=== PATIENT | female | born 1975 | race American Indian/Alaskan Native ===

== ENCOUNTER → 2018-01-15 14:37 | Outpatient (CLI) | payer OTHER, SELFPAY ==
[2018-01-15 14:55] LABS: Add Manual Diff / Slide Review NO; Basophils Percent Auto 0.8 % (0-2); Eosinophils Percent Auto 3.5 % (2-4); Hemoglobin 13.9 g/dL (12.0-16.0); Lymphocytes Percent Auto 43.4 % (25-40); Mean Corpuscular Hemoglobin 28.4 PG (26-34); Mean Corpuscular Volume 83.4 fL (80-100); Monocytes Percent Auto 6.4 % (3-14); Neutrophils Absolute Auto 2000 /uL (3000-5900); Neutrophils Percent Auto 45.9 % (50-75); Platelet Count 196 X10^3/uL (150-400); Red Blood Cell Count 4.91 X10^6/uL (4.0-5.2); Red Cell Distribution Width 13.7 % (11.6-14.8); White Blood Cell Count 4.4 X10^3/uL (4.5-11.0)
[2018-01-15 15:44] LABS: Alanine Aminotransferase 94 IU/L (9-52); Albumin 3.9 g/dL (3.5-5.0); Albumin Globulin Ratio 1.1 (1.0-2.8); Alkaline Phosphatase 123 U/L (38-126); Aspartate Aminotransferase 87 IU/L (14-36); BUN Creatinine Ratio 11.7 (6-22); Bilirubin Total 0.5 mg/dL (0.2-1.3); Blood Urea Nitrogen 7 mg/dL (7-17); Calcium 8.8 mg/dL (8.4-10.2); Carbon Dioxide 28 mmol/L (22-32); Chloride 106 mmol/L (98-107); Estimated Glomerular Filt Rate > 60.0 mL/min (>60); Globulin 3.4 g/dL (1.7-4.1); Glucose 114 mg/dL (70-100); HEMOLYSIS < 15 (0-50); Potassium 3.4 mmol/L (3.4-5.1); Sodium 143 mmol/L (137-145); Total Protein 7.3 g/dL (6.3-8.2)
== END ==
PROVIDERS: Nurse Practitioner Gerontology; Family Provider Family Medicine; PCP Family Medicine; Visit Provider Internal Medicine Hematology & Oncology
DX: C50.912 Malignant neoplasm of unspecified site of left female breast (principal)
CPT/HCPCS: 36415; 80053; 85025

== ENCOUNTER → 2018-07-10 08:35 | Outpatient (CLI) | payer OTHER, SELFPAY ==
--- NOTE | 2018-07-10 08:37 | DI.US.S_ITS ---
LIMITED ULTRASOUND OF RIGHT BREAST AND AXILLA: 07/10/2018 CLINICAL: PALPABLE MASS/LUMP OF RIGHT AXILLA, RIGHT RECONSTRUCTED BREAST TENDERNESS. Comparison is made to exams dated: 10/08/2014 ultrasound, 03/24/2014, and 03/24/2014 mammogram [facility]. Color flow and real-time ultrasound of the right breast lower outer quadrant and axilla regions were performed on the areas of interest. There is an 0.9 cm x 0.6 cm x 0.3 cm oval hypoechoic structure likely representing a cyst within the skin of the right axilla. There are internal echoes. A small linear tract is noted extending to the skin. This correlates with the palpated abnormality. Color flow imaging demonstrates that there is adjacent vascularity. IMPRESSION: BENIGN There is no sonographic evidence of malignancy. The 0.9 cm x 0.6 cm x 0.3 cm oval complicated cyst within the skin is consistent with a sebaceous cyst and is benign. Adjacenet vascularity suggests inflammatory change. Recommend clinical followup to demonstrate resolution. There is no abnormality seen in the right breast to correspond with the palpable abnormality in the lower outer quadrant, however, clinical followup is recommended. This exam was interpreted at Station ID: [id number]. Electronically Signed By: Irineo Bradley M.D. ddclovis/:07/11/2018 08:33:40 letter sent: Clinical Evaluation Ultrasound BI-RADS: 2 Benign
--- NOTE | 2018-07-10 08:37 | DI.US.S_ITS ---
LIMITED ULTRASOUND OF LEFT BREAST AND AXILLA: 07/10/2018 CLINICAL: LEFT AXILLARY PALPABLE MASS, RECONSTRUCTED BREAST TENDERNESS. Comparison is made to exams dated: 08/07/2017 ultrasound, 10/08/2014 [facility] and real-time ultrasound of the left breast lower inner quadrant and axilla regions were performed on the areas of interest. There is a hypoechoic structure measuring 1.6 cm x 0.3 cm x 1 cm likely representing a cyst with debris within the skin of the left axilla. There is a small tract to the skin noted. This correlates with palpated. Color flow imaging demonstrates that there is vascularity present. There also is a similar 1.4 cm x 0.3 cm x 0.8 cm oval complicated cyst within the skin of the left axilla. This oval complicated cyst is hypoechoic with internal echoes. There is also a small tract to the skin noted. This correlates with palpated. Color flow imaging demonstrates that there is vascularity present. No discrete cystic or solid mass identified in the lower inner quadrant. IMPRESSION: BENIGN There is no sonographic evidence of malignancy. The 1.6 cm x 0.3 cm x 1 cm oval cyst with debris within the skin of the left axilla is consistent with a sebaceous cyst and is benign. Recommend followup clinically to demonstrate resolution. The 1.4 cm x 0.3 cm x 0.8 cm oval complicated cyst within the skin of the left axilla is consistent with a sebaceous cyst and is benign. Recommend clinical followup to demonstrate resolution. There is no abnormality seen in the left breast to correspond with the palpable abnormality in the lower inner quadrant, however, clinical followup is recommended. This exam was interpreted at Station ID: [id number]. Electronically Signed By: Irineo Bradley M.D. ddp/:07/11/2018 08:41:13 letter sent: Clinical Evaluation Ultrasound BI-RADS: 2 Benign
== END ==
PROVIDERS: Family Provider Family Medicine; PCP Family Medicine; Visit Provider Family Medicine
DX: C50.919 Malignant neoplasm of unspecified site of unspecified female breast (principal); N60.81 Other benign mammary dysplasias of right breast; N60.82 Other benign mammary dysplasias of left breast
CPT/HCPCS: 76642

== ENCOUNTER → 2018-10-23 09:35 | Outpatient (CLI) | payer OTHER, SELFPAY ==
[2018-10-23 11:56] LABS: Add Manual Diff / Slide Review NO; Basophils Absolute Auto 0 /uL (0-100); Basophils Percent Auto 0.3 % (0-2); Eosinophils Absolute Auto 100 /uL (0-450); Eosinophils Percent Auto 3.1 % (2-4); Hematocrit 42.7 % (36-46); Hemoglobin 14.2 g/dL (12.0-16.0); Lymphocytes Absolute Auto 1900 /uL (1100-4500); Lymphocytes Percent Auto 40.4 % (25-40); Mean Corpuscular HGB Conc 33.3 % (30-36); Mean Corpuscular Hemoglobin 28.4 PG (26-34); Mean Corpuscular Volume 85.2 fL (80-100); Monocytes Absolute Auto 300 /uL (0-900); Monocytes Percent Auto 6.9 % (3-14); Neutrophils Absolute Auto 2300 /uL (1500-7000); Neutrophils Percent Auto 49.3 % (50-75); Platelet Count 219 X10^3/uL (150-400); Red Cell Distribution Width 14.1 % (11.6-14.8); White Blood Cell Count 4.7 X10^3/uL (4.5-11.0)
[2018-10-23 12:00] LABS: Hemoglobin A1C% w Est Avg Glu 5.7 % (4.0-6.0)
[2018-10-23 12:06] LABS: Alanine Aminotransferase 93 IU/L (9-52); Albumin 4.1 g/dL (3.5-5.0); Albumin Globulin Ratio 1.2 (1.0-2.8); Alkaline Phosphatase 136 U/L (38-126); Aspartate Aminotransferase 85 IU/L (14-36); BUN Creatinine Ratio 12.9 (6-22); Bilirubin Total 0.6 mg/dL (0.2-1.3); Blood Urea Nitrogen 9 mg/dL (7-17); Calcium 8.7 mg/dL (8.4-10.2); Carbon Dioxide 31 mmol/L (22-32); Chloride 105 mmol/L (98-107); Estimated Glomerular Filt Rate > 60.0 mL/min (>60); Globulin 3.4 g/dL (1.7-4.1); Glucose 106 mg/dL (70-100); HEMOLYSIS < 15 (0-50); Potassium 3.9 mmol/L (3.4-5.1); Sodium 143 mmol/L (137-145); Total Protein 7.5 g/dL (6.3-8.2)
[2018-10-23 12:27] LABS: Creatinine Urine Random 266.1 mg/dL
[2018-10-23 12:31] LABS: Microalbumi Creatinin Ratio Ur 6.3 ug/mg CR (<30); Microalbumin Urine Random 1.7 mg/dL (0-1.6)
[2018-10-23 12:34] LABS: Cholesterol 234 mg/dL (140-199); HDL Cholesterol 45 mg/dL (40-60); LDL Cholesterol Calculated 134 mg/dL (<100); Triglycerides 274 mg/dL (35-150)
== END ==
PROVIDERS: Nurse Practitioner Gerontology; PCP Family Medicine; Visit Provider Family Medicine
DX: C50.919 Malignant neoplasm of unspecified site of unspecified female breast (principal); I10 Essential (primary) hypertension; R73.03 Prediabetes
CPT/HCPCS: 36415; 80053; 80061; 82043; 82570; 83036; 85025

== ENCOUNTER → 2018-11-01 12:54 | Outpatient (CLI) | payer OTHER, SELFPAY | PROVIDERS: PCP Family Medicine; Visit Provider Family Medicine | DX: R20.8 Other disturbances of skin sensation (principal) | CPT/HCPCS: 95885; 95886; 95911 ==

== ENCOUNTER → 2019-02-27 15:19 | Outpatient (CLI) | payer OTHER, SELFPAY ==
--- NOTE | 2019-02-27 15:23 | DI.RAD.S_ITS ---
PROCEDURE: XR CHEST 2V INDICATIONS: cough x 2 months, hx breast CA TECHNIQUE: 2 views of the chest were acquired. COMPARISON: [facility], , CHEST 1 VIEW, 04/26/2013, 10:15. FINDINGS: Surgical changes and devices: Previously seen right tunneled port device has been removed. Surgical close project over the right chest. Surgical clips in right upper abdomen likely from prior cholecystectomy. Lungs and pleura: Lungs are clear. No pleural effusions or pneumothorax. Mediastinum: Mediastinal contours are normal. Heart size is normal. Bones and chest wall: No suspicious bony abnormalities. Soft tissues appear unremarkable. IMPRESSION: Chest without acute cardiopulmonary abnormalities. No focal consolidation. If there is persistent clinical concern for disease recurrence or metastatic involvement of the lungs, consider CT evaluation as it is more sensitive for detecting smaller lesions that may not be readily visible on radiographs. Dictated by: Ricardo Fernandes M.D. on 02/27/2019 at 16:24 Approved by: Ricardo Fernandes M.D. on 02/27/2019 at 16:27
== END ==
PROVIDERS: PCP Family Medicine; Visit Provider Family Medicine
DX: R05 Cough (principal); Z85.3 Personal history of malignant neoplasm of breast
CPT/HCPCS: 71046

== ENCOUNTER → 2020-03-31 09:25 | Outpatient (CLI) | payer OTHER, SELFPAY ==
[2020-03-31 10:24] LABS: Hemoglobin A1C% w Est Avg Glu 5.7 % (4.0-6.0)
== END ==
PROVIDERS: PCP Family Medicine; Referring Provider Family Medicine; Visit Provider Family Medicine
DX: R73.03 Prediabetes (principal)
CPT/HCPCS: 36415; 83036

== ENCOUNTER → 2020-06-30 12:43 | Outpatient (CLI) | payer OTHER, SELFPAY ==
--- NOTE | 2020-06-30 | DI.US.S_ITS ---
ULTRASOUND OF RIGHT AXILLA: 06/30/2020 CLINICAL: Right axilla areas f/u - prior done 07/2018. Comparison is made to exams dated: 07/10/2018 ultrasound, 10[facility]08[facility]2014 [facility] of the right axilla was performed. The benign 0.9 cm x 0.6 cm x 0.3 cm cyst within the skin of the right axilla is no longer seen. IMPRESSION: BENIGN There is no sonographic evidence of malignancy. The benign 0.9 cm x 0.6 cm x 0.3 cm cyst within the skin of the right axilla is no longer seen. This exam was interpreted at Station ID: [id number]. Electronically Signed By: Cesar Rajan acr/:06/30/2020 16:04:50 letter sent: Clinical Evaluation Ultrasound BI-RADS: 2 Benign
== END ==
PROVIDERS: PCP Family Medicine; Referring Provider Family Medicine; Visit Provider Family Medicine
DX: N63.31 Unspecified lump in axillary tail of the right breast (principal)
CPT/HCPCS: 76882

== ENCOUNTER → 2020-07-07 08:09 | Outpatient (CLI) | payer OTHER, SELFPAY ==
--- NOTE | 2020-07-07 | DI.US.S_ITS ---
LIMITED ULTRASOUND OF RIGHT BREAST- WITH AUGMENTATION: 07/07/2020 CLINICAL: Palpable right breast lump at lateral end of mastectomy scar. Comparison is made to exams dated: 06/30/2020 ultrasound and 07/10/2018 [facility]. Real-time ultrasound of the right reconstructed breast 9 o'clock region was performed on the area of interest. No discrete cystic or solid mass lesion identified in the area of palpable abnormality. IMPRESSION: NEGATIVE There is no sonographic evidence of malignancy. There is no abnormality seen in the right reconstructed breast to correspond with the palpable abnormality at 9 o'clock, however, clinical followup is recommended. This exam was interpreted at Station ID: [id number]. Electronically Signed By: Irineo Bradley M.D. ddclovis/:07/07/2020 11:43:28 letter sent: Clinical Evaluation Ultrasound BI-RADS: 1 Negative
== END ==
PROVIDERS: PCP Family Medicine; Referring Provider Family Medicine; Visit Provider Family Medicine
DX: N63.10 Unspecified lump in the right breast, unspecified quadrant
CPT/HCPCS: 76642

== ENCOUNTER → 2021-04-07 12:35 | Outpatient (CLI) | payer OTHER, SELFPAY ==
--- NOTE | 2021-04-07 12:37 | DI.US.S_ITS ---
LIMITED ULTRASOUND OF RIGHT BREAST: 04/07/2021 CLINICAL: Right breast pain. Comparison is made to exams dated: 07/07/2020 ultrasound, 06/30/2020 ultrasound, 07/10/2018 ultrasound, 10/08/2014 ultrasound, 03/24/2014 mammogram, and 03/24/2014 [facility]. Real-time ultrasound of the right chest wall was performed in the areas of interest. No discrete cystic or solid mass lesion identified in the area of focal pain in the inferior right chest wall. No discrete cystic or solid mass lesion identified in the area of focal pain in the mid right chest wall. However, evaluation is limited by the presence of the breast implant. . IMPRESSION: NEGATIVE There is no sonographic evidence of malignancy in the areas of pain in the right chest wall. Evaluation of the area of pain posterior to the right implant is limited sonographically. Clinical followup is recommended. If clinical concern persists, further evaluation may be obtained with a breast MRI. This exam was interpreted at Station ID: [id number]. Electronically Signed By: Irineo pope/:04/07/2021 15:12:20 letter sent: Clinical Evaluation Ultrasound BI-RADS: 1 Negative
== END ==
PROVIDERS: PCP Family Medicine; Referring Provider Internal Medicine Hematology & Oncology; Visit Provider Internal Medicine Hematology & Oncology
DX: N64.4 Mastodynia (principal); Z98.82 Breast implant status; Z85.3 Personal history of malignant neoplasm of breast
CPT/HCPCS: 76642

== ENCOUNTER → 2021-04-28 09:52 | Outpatient (CLI) | payer OTHER, SELFPAY ==
--- NOTE | 2021-04-28 09:54 | DI.RAD.S_ITS ---
PROCEDURE: XR FOOT LT MIN 3V INDICATIONS: screen TECHNIQUE: 3 views of the foot were acquired. COMPARISON: None. FINDINGS: Bones: No fractures or dislocations. No suspicious bony lesions. Soft tissues: No tibiotalar joint effusion. Achilles tendon appears normal. IMPRESSION: No evidence acute bony abnormality of the left foot. If clinical suspicion and/or symptoms persist, further assessment with repeat plain films, or advanced imaging (e.g., CT, MRI, or bone scan) may be helpful for further assessment. Dictated by: Santiago Cano M.D. on 04/28/2021 at 10:16 Approved by: Santiago Cano M.D. on 04/28/2021 at 10:17
--- NOTE | 2021-04-28 09:54 | DI.RAD.S_ITS ---
PROCEDURE: XR KNEE LT 3V INDICATIONS: screen TECHNIQUE: 3 views of the knee were acquired. COMPARISON: None. FINDINGS: Bones: No fractures or dislocations. No suspicious bony lesions. Scattered degenerative subchondral sclerosis and spurring. Mild patellofemoral joint space narrowing. Soft tissues: No joint effusion. No suspicious soft tissue calcifications. IMPRESSION: Mild degenerative changes. If the patient's pain or other symptoms persist, consider further evaluation with MRI Dictated by: Faustino Castro M.D. on 04/28/2021 at 10:56 Approved by: Faustino Castro M.D. on 04/28/2021 at 10:57
== END ==
PROVIDERS: PCP Family Medicine; Referring Provider Family Medicine; Visit Provider Family Medicine
DX: M79.605 Pain in left leg (principal); M79.675 Pain in left toe(s)
CPT/HCPCS: 73562; 73630

== ENCOUNTER → 2021-05-14 10:15 | Outpatient (CLI) | payer OTHER, SELFPAY ==
[2021-05-14 12:04] LABS: COVID19 -Nasal RAPID Negative (Negative)
== END ==
PROVIDERS: PCP Family Medicine; Visit Provider Surgery
DX: Z01.812 Encounter for preprocedural laboratory examination (principal); Z20.822 Contact with and (suspected) exposure to COVID-19
CPT/HCPCS: 87635; C9803

== ENCOUNTER 2021-05-17 12:33 | Day surgery (SDC) | payer OTHER, SELFPAY ==
[2021-05-17 13:03] VITALS: BP 161/98; PULSE 89; RESP 16; TEMP 36.6; O2SAT 96; BMI 41.0
[2021-05-17] MEDS: LACTATED RINGERS 1,000 ML 42 ML IV (13:33)
--- NOTE | 2021-05-17 13:42 | P.HP_ITS ---
History of Present Illness History of Present Illness Date Patient Seen: 05/17/21 Time Patient Seen: 13:42 Chief complaint: SCREENING COLONOSCOPY Narrative: Rosa Maria is a 46-year-old woman who has never had a colonoscopy before. She has had breast cancer and she is BRCA positive. She denies a any known family history of colon cancer specifically. She denies any melena or bright red blood per rectum. No recent changes in bowel function. Patient History Medical History Breast cancer (2012) CTS (carpal tunnel syndrome) HPV (human papilloma virus) infection Pulmonary embolism (2006) Surgical History Anesthesia History of bilateral salpingo-oophorectomy (BSO) (01/05/15) History of carpal tunnel repair (09/19/14) History of removal of Port-a-Cath (2013) History of tonsillectomy (1990) Port-A-Cath in place (2012) Status post appendectomy (1991) Status post delivery (1998) Status post delivery (1999) Status post delivery (2001) Status post delivery (2006) Status post cholecystectomy (1998) Status post laparoscopy (01/05/15) Status post partial mastectomy (02/27/13) Family & Social History Family History Brother Age: 36 Hypertension Sister Age: 46 Rheumatoid arthritis Brother No problems noted. Father MVA (motor vehicle accident) Mother No problems noted. Sister No problems noted. Social History: household members spouse other gardening, travel, [employer] Tobacco & Substance use: Smoking Status Never smoker alcohol intake current alcohol intake frequency holiday/special occasion Substance Use Type does not use Meds Home Medications and Allergies Home Medications Medication Instructions Recorded Confirmed Type fluticasone propionate 44 2 inhalation INHALATION BID #10.6 12/17/19 05/17/21 Rx mcg/actuation HFA aerosol inhaler gram omeprazole 20 mg capsule,delayed See Rx Instructions .ROUTE 11/23/20 05/17/21 Rx release .COMPLEX #90 cap amitriptyline 10 mg tablet See Rx Instructions .ROUTE 02/15/21 05/17/21 Rx .COMPLEX #90 tab gabapentin 100 mg capsule See Rx Instructions .ROUTE 03/01/21 05/17/21 Rx .COMPLEX #120 cap etodolac 400 mg tablet See Rx Instructions .ROUTE 03/15/21 05/17/21 Rx .COMPLEX #180 tab meclizine 12.5 mg tablet 12.5 mg PO TID PRN #30 tab 04/19/21 05/17/21 Rx lisinopril 20 mg tablet See Rx Instructions .ROUTE 05/10/21 05/17/21 Rx .COMPLEX #90 tab Allergies Allergy/AdvReac Type Severity Reaction Status Date / Time cefotetan [CEFOTETAN] Allergy Mild Hives Verified 05/17/21 13:31 cefuroxime [CEFUROXIME] Allergy Mild Rash Verified 05/17/21 13:31 clindamycin [CLINDAMYCIN] Allergy Mild Hives Verified 05/17/21 13:31 Gadolinium-Containing Allergy Mild Hives Verified 05/17/21 13:31 Contrast Medi [GADOLINIUM-CONTAINING CONTRAST MEDI] ketorolac [KETOROLAC] Allergy Mild Hives Verified 05/17/21 13:31 lidocaine [LIDOCAINE] Allergy Mild Hives Verified 05/17/21 13:31 vancomycin [VANCOMYCIN] Allergy Unknown Itching Verified 05/17/21 13:31 Exam Vital Signs (past 8 hours): - 05/17/21 13:03 Temperature 97.9 F Pulse Rate 89 Respiratory Rate 16 Blood Pressure 161/98 H Pulse Oximetry 96 Oxygen Delivery Method Room Air Const Nutritional Appearance: obese Orientation: alert and awake Eyes General: appearance normal, both eyes and all related structures Resp Effort & Inspection: normal respiratory effort Assessment & Plan Assessment and plan (1) BRCA2 positive: Status: Acute Plan 46-year-old woman with BRCA positive. She is here for colonoscopy. We reviewed the risks and benefits. She would like to proceed. Time Spent With Patient Critical Care time: I spent a total of [] minutes of critical care time on this patient's care today; this time is exclusive of procedural time.
--- NOTE | 2021-05-17 13:43 | PM.PREOP ---
Pre-operative Note COVID-19 COVID-19 status: Negative Result date/Date tested (Pos, Neg/Pending): 05/14/21 Interval Note History & Physical reviewed/Exam performed by Physician: Yes Changes to H&P: No ASA Class (for procedural sedation): II
[2021-05-17] MEDS: fentaNYL 250 MCG/5 ML INJ IV (14:23)
[2021-05-17] MEDS: MIDAZOLAM 5 MG/5 ML VIAL IV (14:24)
--- NOTE | 2021-05-17 14:34 | PM.OP.COLON ---
Operative Date/Time/Diagnoses Date of procedure: 05/17/21 Time of procedure: 14:34 Pre-op diagnosis: BRCA positive Post-op diagnosis: same Procedure & Clinicians Study performed: Colonoscopy Same procedure as scheduled: Yes Indications: BRCA positive Surgeon: Richy Sanchez Procedure Notes SCOAP/Timeout: Yes Procedure in detail: Procedure: The patient was brought to the endoscopy suite, placed in left lateral decubitus position. The patient was connected to monitoring devices. A time-out was performed. Sedation was administered. Once the patient was adequately sedated, a digital rectal exam was performed and was normal. The scope was then inserted and advanced to the cecum where the appendiceal orifice was identified and photographed. The scope was then slowly withdrawn over greater than 6 minutes. Mucosa was thoroughly inspected. No abnormalities were noted. The scope was retroflexed in the rectum. No abnormality was noted. The scope was straightened and removed. The patient was awakened and brought to recovery. Versed: 10 mg Fentanyl: 250 mcg EBL: 0 Findings: Normal colon Scope withdrawal time: Greater than 10 minutes Sedation minutes: 38 Post-procedure Recommendations: Colonoscopy in 10 years Disposition: PACU
[2021-05-17 14:36] VITALS: BP 92/57; PULSE 109; RESP 8; TEMP 36.4; O2SAT 91
[2021-05-17 14:41] VITALS: BP 101/59; PULSE 98; RESP 10; O2SAT 98
[2021-05-17 14:46] VITALS: BP 105/60; PULSE 95; RESP 10; TEMP 36.6
[2021-05-17 14:51] VITALS: BP 106/66; PULSE 97; RESP 12; TEMP 36.4; O2SAT 96
[2021-05-17 15:01] VITALS: BP 108/71; PULSE 96; RESP 14; TEMP 36.4; O2SAT 99
== END 2021-05-17 15:20 | disposition home or self-care (01) ==
PROVIDERS: Surgery; PCP Family Medicine; Referring Provider Surgery; Visit Provider Surgery
PROC: 0DJD8ZZ Inspection of Lower Intestinal Tract, Via Natural or Artificial Opening Endoscopic (ICD-10-PCS; CPT 45378; principal; 2021-05-17 13:45)
DX: Z12.11 Encounter for screening for malignant neoplasm of colon (principal); Z15.09 Genetic susceptibility to other malignant neoplasm; Z85.3 Personal history of malignant neoplasm of breast; Z86.711 Personal history of pulmonary embolism
CPT/HCPCS: 45378; 99152; 99153; J2250; J3010

== ENCOUNTER → 2021-10-21 08:07 | Outpatient (CLI) | payer OTHER, SELFPAY ==
[2021-10-21 08:41] LABS: Hemoglobin A1C% w Est Avg Glu 6.4 % (4.0-6.0)
[2021-10-21 09:11] LABS: Cholesterol 232 mg/dL (140-199); HDL Cholesterol 40 mg/dL (40-60); LDL Cholesterol Calculated 145 mg/dL (<100); Triglycerides 234 mg/dL (35-150)
[2021-10-21 09:43] LABS: TSH w/ Reflex to FT4 2.17 uIU/mL (0.47-4.68)
== END ==
PROVIDERS: PCP Family Medicine; Referring Provider Physician Assistant; Visit Provider Physician Assistant
DX: I10 Essential (primary) hypertension (principal); R73.03 Prediabetes; Z13.220 Encounter for screening for lipoid disorders; Z13.6 Encounter for screening for cardiovascular disorders
CPT/HCPCS: 36415; 80061; 83036; 84443

== ENCOUNTER → 2021-11-16 08:00 | Outpatient (CLI) | payer OTHER, SELFPAY ==
--- NOTE | 2021-11-16 08:02 | DI.US.S_ITS ---
PROCEDURE: US ABDOMEN COMPLETE INDICATIONS: ELEVATED AST/ALT; BREAST CANCER TECHNIQUE: Real-time scanning was performed of the abdominal and retroperitoneal organs, with image documentation. COMPARISON: None. FINDINGS: Liver: Liver is enlarged and demonstrates diffusely increased echogenicity. Gallbladder: Surgically absent Biliary ducts: Intrahepatic bile ducts are non-dilated. Extrahepatic bile duct caliber measures 5.3 mm. Normal is 6-7 mm or less in diameter, or 10 mm or less post-cholecystectomy. Pancreas: Visualized portions of the pancreas are sonographically normal. Spleen: Spleen is normal in size and homogeneous in echotexture. Kidneys: Kidneys are normal in size and echotexture. Right kidney measures 11.8 cm long; left kidney measures 11.5 cm long. No hydronephrosis or nephrolithiasis. No solid masses. Aorta: Visualized aorta is normal in caliber at less than 3 cm. Proximal aorta not well seen. Iliacs: Proximal common iliac arteries are normal in caliber at less than 2.5 cm. IVC: Not well seen. Miscellaneous: No free abdominal fluid. IMPRESSION: 1. Hepatic steatosis. 2. No acute process. Dictated by: Fercho Maradiaga M.D. on 11/16/2021 at 11:31 Approved by: Fercho Maradiaga M.D. on 11/16/2021 at 11:32
== END ==
PROVIDERS: PCP Family Medicine; Referring Provider Internal Medicine Hematology & Oncology; Visit Provider Internal Medicine Hematology & Oncology
DX: K76.0 Fatty (change of) liver, not elsewhere classified (principal); R74.01 Elevation of levels of liver transaminase levels; Z15.01 Genetic susceptibility to malignant neoplasm of breast; C50.919 Malignant neoplasm of unspecified site of unspecified female breast; Z15.09 Genetic susceptibility to other malignant neoplasm; Z90.49 Acquired absence of other specified parts of digestive tract
CPT/HCPCS: 76700

== ENCOUNTER → 2021-12-14 07:39 | Outpatient (CLI) | payer OTHER, SELFPAY ==
[2021-12-14 09:44] LABS: Alanine Aminotransferase 65 IU/L (<35); Albumin 3.7 g/dL (3.5-5.0); Albumin Globulin Ratio 1.3 (1.0-2.8); Alkaline Phosphatase 149 U/L (38-126); Aspartate Aminotransferase 60 IU/L (14-36); Bilirubin Total 0.6 mg/dL (0.2-1.3); Bilirubin Unconjugated 0.5 mg/dL (0.0-1.1); Cholesterol 166 mg/dL (140-199); Globulin 2.9 g/dL (1.7-4.1); HDL Cholesterol 49 mg/dL (40-60); HEMOLYSIS < 15 (0-50); LDL Cholesterol Calculated 86 mg/dL (<100); Total Protein 6.6 g/dL (6.3-8.2); Triglycerides 156 mg/dL (35-150)
[2021-12-14 11:52] LABS: Hemoglobin A1C% w Est Avg Glu 6.1 % (4.0-6.0)
== END ==
PROVIDERS: PCP Family Medicine; Referring Provider Physician Assistant; Visit Provider Physician Assistant
DX: E78.2 Mixed hyperlipidemia (principal); R73.03 Prediabetes; R74.8 Abnormal levels of other serum enzymes
CPT/HCPCS: 36415; 80061; 80076; 83036

== ENCOUNTER → 2022-03-07 07:12 | Outpatient (CLI) | payer OTHER, SELFPAY ==
[2022-03-07 08:11] LABS: Alanine Aminotransferase 47 IU/L (<35); Albumin 3.8 g/dL (3.5-5.0); Albumin Globulin Ratio 1.2 (1.0-2.8); Alkaline Phosphatase 136 U/L (38-126); Aspartate Aminotransferase 38 IU/L (14-36); Bilirubin Total 0.6 mg/dL (0.2-1.3); Bilirubin Unconjugated 0.5 mg/dL (0.0-1.1); Globulin 3.2 g/dL (1.7-4.1); HEMOLYSIS < 15 (0-50)
[2022-03-07 18:57] LABS: Hemoglobin A1C% w Est Avg Glu 5.4 % (4.0-6.0)
== END ==
PROVIDERS: PCP Family Medicine; Referring Provider Family Medicine; Visit Provider Family Medicine
DX: E78.2 Mixed hyperlipidemia (principal); R73.03 Prediabetes; R74.8 Abnormal levels of other serum enzymes
CPT/HCPCS: 36415; 80076; 83036

== ENCOUNTER → 2022-07-22 09:04 | Outpatient (CLI) | payer OTHER, SELFPAY ==
[2022-07-22 12:22] LABS: Cholesterol 191 mg/dL (140-199); HDL Cholesterol 47 mg/dL (40-60); LDL Cholesterol Calculated 91 mg/dL (<100); Triglycerides 263 mg/dL (35-150)
== END ==
PROVIDERS: PCP Family Medicine; Referring Provider Family Medicine; Visit Provider Family Medicine
DX: E78.2 Mixed hyperlipidemia (principal); I10 Essential (primary) hypertension; R73.03 Prediabetes
CPT/HCPCS: 36415; 80061

== ENCOUNTER → 2022-08-17 10:32 | Outpatient (CLI) | payer OTHER, SELFPAY ==
[2022-08-17 11:11] LABS: Hemoglobin A1C% w Est Avg Glu 6.3 % (4.0-6.0)
== END ==
PROVIDERS: PCP Family Medicine; Referring Provider Physician Assistant; Visit Provider Physician Assistant
DX: R73.03 Prediabetes (principal)
CPT/HCPCS: 36415; 83036

== ENCOUNTER → 2022-08-18 08:44 | Outpatient (CLI) | payer OTHER, SELFPAY ==
--- NOTE | 2022-08-18 08:45 | DI.US.S_ITS ---
ULTRASOUND OF LEFT AXILLA: 08/18/2022 CLINICAL: Palpable left axilla lump. Post bilateral mastectomy. Comparison is made to exams dated: 04/07/2021 ultrasound, 07/10/2018 ultrasound, 08/07/2017 ultrasound, 10/08/2014 ultrasound, and 03/24/2014 mammogram - [facility]. Color flow and Doppler ultrasound of the left axilla were performed. Locke scale images of the real-time examination were reviewed. There is a new benign appearing sebaceous cyst in the axilla and in the left axilla that correlates with palpable area. IMPRESSION: BENIGN There is no sonographic evidence of malignancy. Recommend clinical follow-up. Return to annual mammogram screening schedule is recommended. This exam was interpreted at Station ID: [id number]. Electronically Signed By: Cesar Rajan M.D. acr/:08/18/2022 09:27:56 letter sent: Clinical Evaluation Ultrasound BI-RADS: 2 Benign
== END ==
PROVIDERS: PCP Family Medicine; Referring Provider Physician Assistant; Visit Provider Physician Assistant
DX: L72.3 Sebaceous cyst (principal); R22.32 Localized swelling, mass and lump, left upper limb; Z90.13 Acquired absence of bilateral breasts and nipples
CPT/HCPCS: 76882

== ENCOUNTER → 2022-09-13 12:29 | Outpatient (CLI) | payer OTHER, SELFPAY ==
[2022-09-13 14:06] LABS: Alanine Aminotransferase 65 IU/L (<35); Albumin 3.9 g/dL (3.5-5.0); Albumin Globulin Ratio 1.1 (1.0-2.8); Alkaline Phosphatase 146 U/L (38-126); Aspartate Aminotransferase 63 IU/L (14-36); Bilirubin Total 0.6 mg/dL (0.2-1.3); Blood Urea Nitrogen 8 mg/dL (7-17); Calcium 8.8 mg/dL (8.4-10.2); Carbon Dioxide 30 mmol/L (22-32); Chloride 103 mmol/L (98-107); Estimated Glomerular Filt Rate > 60 mL/min (>60); Globulin 3.7 g/dL (1.7-4.1); Glucose 115 mg/dL (70-100); HEMOLYSIS < 15 (0-50); Sodium 141 mmol/L (137-145); Total Protein 7.6 g/dL (6.3-8.2)
== END ==
PROVIDERS: PCP Family Medicine; Referring Provider Family Medicine; Visit Provider Family Medicine
DX: E78.2 Mixed hyperlipidemia (principal); I10 Essential (primary) hypertension; R73.03 Prediabetes
CPT/HCPCS: 36415; 80053

== ENCOUNTER → 2022-12-22 12:22 | Outpatient (CLI) | payer OTHER, SELFPAY ==
[2022-12-22 13:28] LABS: Add Manual Diff / Slide Review NO; Basophils Absolute Auto 0 /uL (0-100); Basophils Percent Auto 0.3 % (0-2); Eosinophils Absolute Auto 200 /uL (0-450); Hematocrit 40.8 % (36-46); Hemoglobin 13.8 g/dL (12.0-16.0); Lymphocytes Absolute Auto 2900 /uL (1100-4500); Lymphocytes Percent Auto 55.9 % (25-40); Mean Corpuscular HGB Conc 33.8 % (30-36); Mean Corpuscular Hemoglobin 28.2 PG (26-34); Mean Corpuscular Volume 83.3 fL (80-100); Monocytes Absolute Auto 300 /uL (0-900); Monocytes Percent Auto 6.3 % (3-14); Neutrophils Absolute Auto 1800 /uL (1500-7000); Neutrophils Percent Auto 34.5 % (50-75); Platelet Count 203 X10^3/uL (150-400); Red Blood Cell Count 4.89 X10^6/uL (4.0-5.2); Red Cell Distribution Width 13.1 % (11.6-14.8); White Blood Cell Count 5.2 X10^3/uL (4.5-11.0)
[2022-12-22 13:38] LABS: Alanine Aminotransferase 74 IU/L (<35); Albumin 3.9 g/dL (3.5-5.0); Albumin Globulin Ratio 1.2 (1.0-2.8); Alkaline Phosphatase 138 U/L (38-126); Aspartate Aminotransferase 51 IU/L (14-36); BUN Creatinine Ratio 8.5 (6-22); Bilirubin Total 0.4 mg/dL (0.2-1.3); Blood Urea Nitrogen 5 mg/dL (7-17); Calcium 8.7 mg/dL (8.4-10.2); Carbon Dioxide 33 mmol/L (22-32); Chloride 100 mmol/L (98-107); Estimated Glomerular Filt Rate > 60 mL/min (>60); Globulin 3.3 g/dL (1.7-4.1); Glucose 171 mg/dL (70-100); HEMOLYSIS < 15 (0-50); Potassium 3.9 mmol/L (3.4-5.1); Sodium 138 mmol/L (137-145); Total Protein 7.2 g/dL (6.3-8.2)
== END ==
PROVIDERS: PCP Family Medicine; Referring Provider Internal Medicine Hematology & Oncology; Visit Provider Internal Medicine Hematology & Oncology
DX: C50.919 Malignant neoplasm of unspecified site of unspecified female breast (principal); Z15.01 Genetic susceptibility to malignant neoplasm of breast; Z15.09 Genetic susceptibility to other malignant neoplasm; Z86.711 Personal history of pulmonary embolism
CPT/HCPCS: 36415; 80053; 85025

== ENCOUNTER → 2023-09-04 10:03 | Outpatient (CLI) | payer OTHER, SELFPAY ==
--- NOTE | 2023-09-04 10:05 | DI.US.S_ITS ---
PROCEDURE: US ABDOMEN LIMITED INDICATIONS: MIDLINE MID ABDOMEN LUMP ?VENTRAL HERNIA TECHNIQUE: Real-time focused scanning was performed of the abdomen, with image documentation. COMPARISON: [facility], US, US ABDOMEN COMPLETE, 11/16/2021, 8:38. FINDINGS: Ultrasound was performed in the area of interest at midline abdomen. No abnormalities identified. No ventral hernia. IMPRESSION: No abnormality is identified in the area of interest. If clinical symptoms persist or clinical suspicion for pathology is high, consider CT for further evaluation. Dictated by: Meg Rodriguez M.D. on 09/04/2023 at 13:00 Approved by: Meg Rodriguez M.D. on 09/04/2023 at 13:02
== END ==
PROVIDERS: PCP Family Medicine; Referring Provider Family Medicine; Visit Provider Family Medicine
DX: K43.9 Ventral hernia without obstruction or gangrene (principal)
CPT/HCPCS: 76705

== ENCOUNTER → 2023-12-12 07:56 | Outpatient (CLI) | payer OTHER, SELFPAY ==
[2023-12-12 09:15] LABS: Add Manual Diff / Slide Review NO; Basophils Absolute Auto 0 /uL (0-100); Basophils Percent Auto 0.4 % (0-2); Eosinophils Absolute Auto 200 /uL (0-450); Hematocrit 46.2 % (36-46); Hemoglobin 15.7 g/dL (12.0-16.0); Lymphocytes Absolute Auto 2800 /uL (1100-4500); Lymphocytes Percent Auto 49.7 % (25-40); Mean Corpuscular Hemoglobin 28.5 PG (26-34); Mean Corpuscular Volume 83.7 fL (80-100); Monocytes Absolute Auto 400 /uL (0-900); Monocytes Percent Auto 7.9 % (3-14); Neutrophils Absolute Auto 2200 /uL (1500-7000); Platelet Count 207 X10^3/uL (150-400); Red Blood Cell Count 5.52 X10^6/uL (4.0-5.2); Red Cell Distribution Width 13.4 % (11.6-14.8); White Blood Cell Count 5.6 X10^3/uL (4.5-11.0)
[2023-12-12 09:25] LABS: Hemoglobin A1C% w Est Avg Glu 10.9 % (4.0-6.0)
[2023-12-12 09:32] LABS: Alanine Aminotransferase 108 IU/L (<35); Albumin 4.3 g/dL (3.5-5.0); Albumin Globulin Ratio 1.3 (1.0-2.8); Alkaline Phosphatase 250 U/L (38-126); Aspartate Aminotransferase 67 IU/L (14-36); BUN Creatinine Ratio 11.8 (6-22); Bilirubin Total 0.8 mg/dL (0.2-1.3); Blood Urea Nitrogen 9 mg/dL (7-17); Calcium 8.8 mg/dL (8.4-10.2); Carbon Dioxide 30 mmol/L (22-32); Chloride 99 mmol/L (98-107); Cholesterol 172 mg/dL (140-199); Estimated Glomerular Filt Rate > 60 mL/min (>60); Globulin 3.4 g/dL (1.7-4.1); Glucose 409 mg/dL (70-100); HDL Cholesterol 62 mg/dL (40-60); HEMOLYSIS < 15 (0-50); LDL Cholesterol Calculated 73 mg/dL (<100); Potassium 4.6 mmol/L (3.4-5.1); Sodium 137 mmol/L (137-145); Total Protein 7.7 g/dL (6.3-8.2); Triglycerides 186 mg/dL (35-150)
[2023-12-12 09:40] LABS: Creatinine Urine Random 95.12 mg/dL
[2023-12-12 09:46] LABS: Microalbumin Urine Random 1.5 mg/dL (0-1.6)
== END ==
PROVIDERS: PCP Family Medicine; Referring Provider Family Medicine; Visit Provider Family Medicine
DX: R73.03 Prediabetes (principal); I10 Essential (primary) hypertension
CPT/HCPCS: 36415; 80053; 80061; 82043; 82570; 83036; 85025

== ENCOUNTER → 2024-02-02 09:53 | Outpatient (CLI) | payer OTHER, SELFPAY ==
--- NOTE | 2024-03-06 17:35 | DIAB.MNT ---
Initial Diabetes Medical Nutrition Therapy Assessment Name: Rosa Maria Erazo Date: 02/02/24 Time: 1010-1110a Dx: Type II Diabetes Provider: Marc Lowe Learning Style: Listening, Watching, Reading Rosa Maria presents for initial visit. Reports recent diabetes diagnosis in December of 2023 when hgA1c jumped from 6.3% last year to 10.5% this year unexpectedly. Denies any FH of DM. PMH of GDM reported. States she is currently taking low dose Metformin due to diarrhea with higher doses. Endorses steroid shots for hip pain x 3 years, which certainly could exacerbate hyperglycemia. States she wants to learn about diet and water intake today. Also has questions regarding hypoglycemia. Endorses blurry vision. UTD on eye and dental exam Diet Recall: B: nothing or banana or oatmeal x 1 pkt 8pm: 1.5c pasta with burger and sauce, 1/3c potato OR cereal x 2c with milk occasional vanilla ice cream, fast food 4x per week 60oz water 1-2 x 12oz soda per day sometimes OJ, cran/grape juice, fresca Anthropometrics: Ht: 5' Wt: 202# 12/2023 Physical Activity: hip bursitis barrier to exercise, has a stationary bike she does not currently use. Self-Monitoring Blood Glucose: Checks FBG, none for review. Endorses in goal FBG. Diabetes Medications: 500mg Metformin BID Pertinent Labs: HgA1c: 6.3% 08/2022 10.5% 12/2023 Past Medical History: (Last Reviewed 05/17/21 @ 12:54 by Yun Keller RN) Breast cancer (2012) CTS (carpal tunnel syndrome) HPV (human papilloma virus) infection Pulmonary embolism (2006) Nutrition Rx: Carbohydrates: Meal: 45g Snack:15-30g Nutrition Diagnosis: - Nutrition and food related knowledge deficit r/t new dx T2DM aeb pt report and hgA1c >6.5% - Physical inactivity r/t bursitis pain aeb pt report - Predicted excessive CHO intake r/t long period of fasting resulting in excessive hunger aeb diet recall Intervention: This participant was very receptive. Provided appropriate educational handouts. Discussed the following topics: Completed intake assessment. Discussed barriers to care. Pathophysiology of T2DM HgA1c, its correlation to blood glucose numbers, and rationale for goal Importance of self-monitoring, how often, and when to check. Suggested checking at different times to evaluate meals Plate Method, impact of macronutrients on blood sugar, meal timing, carbohydrate counting, pairing macronutrients and spreading out carbohydrates for better blood glucose management Recommended servings for carbohydrates at meals and snacks Heart health nutrition Brainstormed appropriate meal plan based on food preferences Role of physical activity and following provider guidelines for safety Metformin SE and ways to reduce Diabetes complication risk reduction recommendations Hypoglycemia s/s and reduced risk with current medication regimen Hydration recs Created SMART goals for patient self-care and success. Goals: Avoid beverages with sugar Add 4pm snack Try to eat protein at each meal/snack Check a few 1-2 hour pc readings Follow-up: ARACELI YING follow-up in 2-3 weeks recommended. Alda Brown RDN, CDCES Certified [employer] P: [phone] Thank you for this referral
== END ==
PROVIDERS: PCP Family Medicine; Referring Provider Family Medicine
DX: E11.9 Type 2 diabetes mellitus without complications (principal); Z71.3 Dietary counseling and surveillance
CPT/HCPCS: 97802

== ENCOUNTER → 2024-02-17 13:31 | Outpatient (CLI) | payer OTHER, SELFPAY | PROVIDERS: PCP Family Medicine; Visit Provider Nurse Practitioner Family | DX: R30.0 Dysuria (principal) | CPT/HCPCS: 87077; 87086; 87186 ==

== ENCOUNTER → 2024-03-02 09:21 | Outpatient (CLI) | payer OTHER, SELFPAY | PROVIDERS: PCP Family Medicine; Visit Provider Physician Assistant Surgical | DX: R30.0 Dysuria (principal) | CPT/HCPCS: 87086 ==

== ENCOUNTER → 2024-03-05 10:17 | Outpatient (CLI) | payer OTHER, SELFPAY ==
--- NOTE | 2024-03-05 10:21 | DI.RAD.S_ITS ---
PROCEDURE: XR RIBS LT 2V INDICATIONS: left rib pain TECHNIQUE: For views of the ribs were acquired. COMPARISON: None. FINDINGS: Left ribs are unremarkable. Left lung is well expanded and clear. No evidence of pleural effusion or pneumothorax. IMPRESSION: Normal left ribs Dictated by: Josh Angulo M.D. on 03/06/2024 at 10:06 Approved by: Josh Angulo M.D. on 03/06/2024 at 10:08
== END ==
PROVIDERS: PCP Family Medicine; Referring Provider Family Medicine; Visit Provider Family Medicine
DX: R07.81 Pleurodynia (principal)
CPT/HCPCS: 71100

== ENCOUNTER → 2024-09-16 09:45 | Outpatient (CLI) | payer OTHER, SELFPAY ==
--- NOTE | 2024-09-16 09:47 | DI.RAD.S_ITS ---
PROCEDURE: XR HIP W PEL IF DONE KELVIN MIN 4V INDICATIONS: bilateral hip pain TECHNIQUE: AP pelvis with lateral view(s) of the bilateral hip (s). COMPARISON: None. FINDINGS: Bones: There are no osseous abnormalities. SI and hip joints: Normal in width and alignment without arthritic change Soft tissues: Surgical staple overlies the right lower quadrant IMPRESSION: Normal pelvis Dictated by: Josh Angulo M.D. on 09/17/2024 at 7:45 Approved by: Josh Angulo M.D. on 09/17/2024 at 7:46
== END ==
PROVIDERS: PCP Family Medicine; Referring Provider Family Medicine; Visit Provider Family Medicine
DX: M25.551 Pain in right hip (principal); M25.552 Pain in left hip
CPT/HCPCS: 73522

== ENCOUNTER → 2025-03-14 12:38 | Outpatient (CLI) | payer OTHER, SELFPAY ==
[2025-03-14 13:44] LABS: Hemoglobin A1C% w Est Avg Glu 5.8 % (4.0-6.0)
[2025-03-14 14:11] LABS: Alanine Aminotransferase 61 IU/L (<35); Albumin 4.2 g/dL (3.5-5.0); Albumin Globulin Ratio 1.3 (1.0-2.8); Alkaline Phosphatase 105 U/L (38-126); Blood Urea Nitrogen 9 mg/dL (7-17); Calcium 8.8 mg/dL (8.4-10.2); Carbon Dioxide 27 mmol/L (22-32); Chloride 103 mmol/L (98-107); Cholesterol 182 mg/dL (140-199); Estimated Glomerular Filt Rate > 60 mL/min (>60); Globulin 3.3 g/dL (1.7-4.1); Glucose 96 mg/dL (70-99); HDL Cholesterol 59 mg/dL (40-60); HEMOLYSIS < 15 (0-50); Potassium 4.0 mmol/L (3.4-5.1); Sodium 141 mmol/L (137-145); Total Protein 7.5 g/dL (6.3-8.2); Triglycerides 173 mg/dL (35-150)
[2025-03-14 14:15] LABS: Microalbumi Creatinin Ratio Ur 10.0 ug/mg CR (<30)
== END ==
PROVIDERS: PCP Family Medicine; Referring Provider Family Medicine; Visit Provider Family Medicine
DX: E11.9 Type 2 diabetes mellitus without complications (principal)
CPT/HCPCS: 36415; 80053; 80061; 82043; 82570; 83036